=== PATIENT | female | born 1975 | race Caucasian/White ===

== ENCOUNTER 2017-11-09 10:10 | Emergency (ER) | payer OTHER | END 2017-11-09 15:15 | disposition home or self-care (01) | LOC: E/R 10:10 → FTE 15:15 | DX: M79.672 Pain in left foot (principal); M54.5 Low back pain | CPT/HCPCS: 72100; 73610; 73630-LT; 99284-25 ==

== ENCOUNTER 2018-08-25 17:09 | Emergency (ER) | payer OTHER ==
[2018-08-25] MEDS: KETOROLAC 60 MG INJ IM (17:59)
== END 2018-08-25 19:01 | disposition home or self-care (01) ==
LOC: FTE 17:09
DX: H66.92 Otitis media, unspecified, left ear (principal); R51 Headache; M54.5 Low back pain
CPT/HCPCS: 70450; 72131; 81025; 96372; 99285-25